=== PATIENT | female | born 1960 | race Caucasian/White ===

== ENCOUNTER 2018-05-16 10:54 | Outpatient (CLI) | payer OTHER | END 2018-05-16 20:11 | disposition home or self-care (01) | LOC: SMA 10:54 | PROVIDERS: ATTEND Family Medicine | DX: Z12.31 Encounter for screening mammogram for malignant neoplasm of breast (principal) | CPT/HCPCS: 77067 ==

== ENCOUNTER 2020-09-16 12:14 | Outpatient (CLI) | payer OTHER | END 2020-09-16 20:50 | disposition home or self-care (01) | LOC: SMA 12:14 | PROVIDERS: ATTEND Family Medicine | DX: Z12.31 Encounter for screening mammogram for malignant neoplasm of breast (principal) | CPT/HCPCS: 77067 ==